=== PATIENT | male | born 1965 | race Caucasian/White ===

== ENCOUNTER 2023-12-27 09:22 | Day surgery (SDC) | payer OTHER, SELFPAY ==
[2023-12-25 11:19] VITALS: BMI 25.9
[2023-12-27 09:29] VITALS: BMI 24.8
[2023-12-27 09:49] VITALS: BP 131/91; PULSE 86; RESP 16; TEMP 35.6; O2SAT 100
[2023-12-27] MEDS: Lactated Ringers 1,000 ML 80 ML IVCONT (09:51)
--- NOTE | 2023-12-27 10:09 | HO.ANESPROP2 ---
[facility] Past Medical History Medical History Renal cyst Renal calculi BPH (benign prostatic hyperplasia) IBS (irritable bowel syndrome) Anxiety Family History Family history of problems with anesthesia: No Surgical History Surgical History H/O colonoscopy History of Problems with Anesthesia: No Social History Social History (Updated 12/25/23 @ 11:19 by Ibeth Solorio RN) Patient Tobacco Use Status: Never used Tobacco Use of substances other than those prescribed or required for medical reasons: No Are you DNR?: No Advance Directives: No Advance Directives Information Provided: Yes Meds Allergies Allergy/AdvReac Type Severity Reaction Status Date / Time No Known Allergies Allergy Verified 12/27/23 09:37 Active Medications: Current Medications Lactated Ringer's (Lr) 1,000 mls @ 80 mls/hr IVCONT .[id number] SAMANTHA Last Admin: 12/27/23 09:51 Dose: 80 mls/hr Home Medications Medication Instructions Recorded Confirmed Last Taken Type No Known Home Meds 12/25/23 12/25/23 Unknown History Exam Height,Weight and Vital Signs: Height 6 ft Weight 83.007 kg Last Vital Signs Temp 96.1 F L 12/27/23 09:49 Pulse 86 12/27/23 09:49 Resp 16 12/27/23 09:49 BP 131/91 H 12/27/23 09:49 Pulse Ox 100 12/27/23 09:49 O2 Del Method Room Air 12/27/23 09:49 Airway Mallampati Class: II TM Dist: >3cm Neck ROM: Full Denture: Upper Assessment and Plan Final Anesthetic Review Family History of Problems with Anesthesia: No History of Problems with Anesthesia: No NPO: Yes ASA Class: I Final Preanesthetic Review: No Changes in Pt Med Stat, Meds/Allgs Chart Reviewed, Consent Obtained/Reviewed and Anes Risks/Benef Reviewed Patient Risk: Low Procedure Risk: Low Anesthetic Plan Anesthetic Plan: TIVA Disposition: Standard PACU
--- NOTE | 2023-12-27 11:07 | MHC.SHP ---
Pre-Procedural Eval Section A - 24 Hr Update-Section A only Date of Service: 12/27/23 Section B - Complete if H&P > 30 days Chief Complaint: screening Details of Present Illness: see H^P no changes Relevant Family History (Specify if Yes): No Relevant Social History: None Present Medications: see Short Stay Collaborative assessment Medical History: No relevant PMH History of Previous Operations: No relevant previous surgery Allergies: Allergies Allergy/AdvReac Type Severity Reaction Status Date / Time No Known Allergies Allergy Verified 12/27/23 09:37 Review of Systems Sugical H&P ROS: Negative: Constitution, Cardiovascular, Respiratory, Neurological, Psychiatric, Hem-Onc, Allergic/Immunologic, Gastrointestinal, Genitourinary, Musculoskeletal, Integumentary, Endocrine and Eyes/Ears/Nose/Throat Exam Surgical H&P Exam: Normal: HEENT, Normal: Heart, Normal: Lungs, Normal: Extremities, Normal: Abdomen, Normal: Skin and Normal: Neurological Plan Diagnosis/Plan: Unchanged I have reviewed the history and physical and performed a pertinent physical examination on my patient. No changes have occurred unless specified. Time Spent With Patient Time: Total time managing care of this patient today ____ minutes.
[2023-12-27 11:39] VITALS: BP 85/51; PULSE 68; RESP 16; TEMP 36.1; O2SAT 96
[2023-12-27 11:54] VITALS: BP 107/71; PULSE 70; RESP 16; TEMP 36.7; O2SAT 97
--- NOTE | 2023-12-27 12:56 | OP_ITS ---
DATE OF SERVICE: 12/27/2023 SURGEON: Oliver Fierro MD INDICATIONS: Colon cancer screening. PREOPERATIVE DIAGNOSIS: POSTOPERATIVE DIAGNOSIS: PROCEDURE PERFORMED: Colonoscopy to the terminal ileum with biopsy. ESTIMATED BLOOD LOSS: COMPLICATIONS: ANESTHESIA: Monitored anesthesia care. ASSISTANTS: SPECIMENS: DESCRIPTION OF PROCEDURE: A history and physical performed. The risks and benefits of the procedure were explained to the patient. Informed consent was obtained. The patient was placed in the left lateral decubitus position. A digital rectal exam was performed and was found to be normal. The Olympus pediatric video colonoscope was introduced into the rectum and advanced to the cecum. The cecum was identified by transillumination, palpation, and identification of ileocecal valve. Examination was performed. The scope was removed. He tolerated the procedure well and was taken to recovery area in stable condition. FINDINGS: The terminal ileum was examined and appeared normal. The visualized colonic mucosa was within normal limits without evidence of masses or ulcers. The quality of the prep was good. No polyps were identified. Random sigmoid biopsies were obtained because of the patient's complaints of diarrhea. Retroflexed examination showed moderate-sized internal hemorrhoids. IMPRESSION: Normal colonoscopy. RECOMMENDATION: 1. Follow up the biopsy results. 2. Repeat colonoscopy is recommended in 10 years for average-risk individuals. MD CINTHIA Martins/JAIME / [id number]
== END 2023-12-27 12:20 | disposition home or self-care (01) ==
PROVIDERS: PCP Internal Medicine; Visit Provider Internal Medicine Gastroenterology
PROC: 0DJD8ZZ Inspection of Lower Intestinal Tract, Via Natural or Artificial Opening Endoscopic (ICD-10-PCS; CPT 45378; principal; 2023-12-27 10:40)
DX: Z12.11 Encounter for screening for malignant neoplasm of colon (principal); K64.8 Other hemorrhoids; Z83.719 Family history of colon polyps, unspecified
CPT/HCPCS: 45380; 88305; J2704